=== PATIENT | male | born 1995 | race Two or more races ===

== ENCOUNTER 2017-07-23 13:05 | Emergency (ER) | payer SELFPAY ==
[~2017-07-23] VITALS: Ht 167.6 cm; Wt 91.0 kg
[2017-07-23 13:14] VITALS: BP 118/75
== END 2017-07-23 14:57 | disposition home or self-care (01) ==
LOC: ED 14:00
DX: J00 Acute nasopharyngitis [common cold] (principal)
CPT/HCPCS: 99283